=== PATIENT | male | born 2000 | race Caucasian/White ===

== ENCOUNTER 2025-10-02 03:34 | Emergency (ER) | payer SELFPAY ==
[2025-10-02 03:29] VITALS: PULSE 69; RESP 18; TEMP 36.4; O2SAT 97
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
[2025-10-02 03:45] VITALS: BP 127/79; PULSE 91; RESP 18; O2SAT 98
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
[2025-10-02 05:45] VITALS: BP 117/83; PULSE 88; RESP 16; O2SAT 98
== END 2025-10-02 07:15 | disposition home or self-care (01) ==
LOC: ER 07:08
PROVIDERS: Emergency Provider Emergency Medicine; PCP Nurse Practitioner Family
DX: S40.212A Abrasion of left shoulder, initial encounter (principal); S80.12XA Contusion of left lower leg, initial encounter; F17.290 Nicotine dependence, other tobacco product, uncomplicated; V48.6XXA Car passenger injured in noncollision transport accident in traffic accident, initial encounter
CPT/HCPCS: 99283; 71046; 73590